=== PATIENT | female | born 1955 | race Caucasian/White ===

== ENCOUNTER 2017-10-04 22:20 | Emergency (ER) | payer OTHER ==
[~2017-10-04] VITALS: Ht 172.7 cm; Wt 81.7 kg
[~2017-10-04 22:20] MED LIST: ATEN25 PO; CLAR250; HYDACE5 PO; IODINE; THYR60
[2017-10-05] MEDS ORDERED: EPIPEN 2-P0.3 MG/0.3 IM (01:15)
[2017-10-05] MEDS ORDERED: BENADRYL25 MG PO (01:15)
[2017-10-05] MEDS ORDERED: Prednisone50 MG PO (01:15)
[2017-10-05] MEDS ORDERED: FAMO20 PO (01:15)
== END 2017-10-05 01:35 | disposition home or self-care (01) ==
LOC: ER 22:20
DX: T63.441A Toxic effect of venom of bees, accidental (unintentional), initial encounter (principal); Z79.899 Other long term (current) drug therapy
CPT/HCPCS: 99283; J1100

== ENCOUNTER 2018-08-07 21:31 | Emergency (ER) | payer OTHER ==
[~2018-08-07] VITALS: Ht 172.7 cm; Wt 74.8 kg
[~2018-08-07 21:31] MED LIST changes: +BENADRYL25 MG PO; +EPIPEN 2-P0.3 MG/0.3 IM; +FAMO20 PO; +Prednisone50 MG PO
[2018-08-07] MEDS ORDERED: LEVSOD50 PO (22:33)
== END 2018-08-07 23:34 | disposition home or self-care (01) ==
LOC: ER 21:31
DX: L50.9 Urticaria, unspecified (principal); Z79.52 Long term (current) use of systemic steroids; Z91.030 Bee allergy status
CPT/HCPCS: 99283; J1100; Q0163

== ENCOUNTER 2018-08-12 20:40 | Emergency (ER) | payer OTHER ==
[~2018-08-12] VITALS: Ht 172.7 cm; Wt 72.6 kg
[~2018-08-12 20:40] MED LIST changes: +LEVSOD50 PO
== END 2018-08-12 22:15 | disposition home or self-care (01) ==
LOC: ER 20:40
DX: S61.412A Laceration without foreign body of left hand, initial encounter (principal); E03.9 Hypothyroidism, unspecified; Z79.899 Other long term (current) drug therapy; Z87.891 Personal history of nicotine dependence; W45.8XXA Other foreign body or object entering through skin, initial encounter
CPT/HCPCS: 12002; 90471; 90714; 99282-25; A9270-GY

== ENCOUNTER 2019-04-21 10:52 | Day surgery (SDC) | payer OTHER ==
[~2019-04-21] VITALS: Wt 71.3 kg
--- NOTE | 2019-04-21 12:28 | NUR ---
Ambulatory in Day SurgeryPatient states colon prep results clear. History, Chart, Medications and Allergies reviewed before start of procedure.Lungs clear T/O to Auscultation. Patient confirms NPO status and agrees with scheduled surgery.
--- NOTE | 2019-04-21 12:39 | NUR ---
04/21/19 1239 Theresa Hernadez History, Chart, Medications and Allergies reviewed before start of procedure. PATIENT CONFIRMS NPO STATUS AND AGREES WITH SCHEDULED PROCEDURE. MONITOR INTACT WITH CONTINUOUS PULSE OXIMETRY AND INTERMITTENT BP. O2 VIA N/C INTACT THROUGHOUT SEDATION/PROCEDURE. 3-LEAD EKG REVIEWED WITH PHYSICIAN PRIOR TO START OF PROCEDURE. PATIENT DETERMINED TO BE ASA APPROPRIATE FOR PROPOFOL SEDATION PRIOR TO START OF PROCEDURE BY DR. [email or web address].N
--- NOTE | 2019-04-21 13:53 | NUR ---
REPORT FROM MIAH PERERA RN.
--- NOTE | 2019-04-21 14:21 | NUR ---
Patient up to Ambulate independently. Gait steady. Discharge instructions reviewed with patient. Patient verbalizes understanding. Copy given to patient to take home. Patient States Post-Procedure ride home has been arranged. Discharged via wheelchair to private car for ride home.
== END 2019-04-21 22:45 | disposition home or self-care (01) ==
LOC: ORSCMMR 10:52 → ORD 12:30 → ORSCMMR 22:45
PROVIDERS: Internal Medicine Gastroenterology
PROC: 0DBK8ZX Excision of Ascending Colon, Via Natural or Artificial Opening Endoscopic, Diagnostic (ICD-10-PCS; principal; 2019-04-21 12:30)
PROC: 0DBM8ZX Excision of Descending Colon, Via Natural or Artificial Opening Endoscopic, Diagnostic (ICD-10-PCS; principal; 2019-04-21 12:30)
DX: R19.5 Other fecal abnormalities (principal); D12.2 Benign neoplasm of ascending colon; D12.4 Benign neoplasm of descending colon; K63.5 Polyp of colon; K57.30 Diverticulosis of large intestine without perforation or abscess without bleeding; K64.8 Other hemorrhoids; Q27.33 Arteriovenous malformation of digestive system vessel; F17.210 Nicotine dependence, cigarettes, uncomplicated; E03.9 Hypothyroidism, unspecified; Z79.899 Other long term (current) drug therapy
CPT/HCPCS: 88305; J2250; J2704; J7120

== ENCOUNTER → 2021-11-28 | Outpatient (CLI) | payer OTHER ==
[~2021-11-28] MED LIST changes: +HYDCHL25 PO; +MOTION RELIEF25 MG PO; +ONDA4ODT SL
[2021-11-29 15:10] LABS: HPV 16 Negative (Negative); HPV 18 Negative (Negative); HPV OTHER HR TYPES Negative (Negative)
== END | disposition home or self-care (01) ==
LOC: LAB SHORT 14:37 → LAB 14:37
PROVIDERS: Family Medicine
DX: Z12.4 Encounter for screening for malignant neoplasm of cervix (principal)
CPT/HCPCS: 87624; G0123

== ENCOUNTER 2022-07-22 06:45 | Day surgery (SDC) | payer OTHER ==
[~2022-07-22] VITALS: Ht 172.7 cm; Wt 75.1 kg
[2022-07-22] MEDS ORDERED: LOSA25 (07:12)
[2022-07-22] MEDS ORDERED: OMEP20ER (07:12)
[2022-07-22] MEDS ORDERED: EUTHYROX50 MCG (07:12)
== END 2022-07-22 09:17 | disposition home or self-care (01) ==
LOC: ORSCSDS 06:45
PROVIDERS: Internal Medicine Gastroenterology
PROC: 0DBL8ZX Excision of Transverse Colon, Via Natural or Artificial Opening Endoscopic, Diagnostic (ICD-10-PCS; principal; 2022-07-22 08:15)
DX: Z12.11 Encounter for screening for malignant neoplasm of colon (principal); Z86.010 Personal history of colon polyps; Z83.71 Family history of colonic polyps; D12.3 Benign neoplasm of transverse colon; K57.30 Diverticulosis of large intestine without perforation or abscess without bleeding; K21.9 Gastro-esophageal reflux disease without esophagitis; K55.20 Angiodysplasia of colon without hemorrhage; Z87.891 Personal history of nicotine dependence; Z79.899 Other long term (current) drug therapy
CPT/HCPCS: 88305; J2704; J7120

== ENCOUNTER → 2022-08-19 | Outpatient (CLI) | payer OTHER ==
[~2022-08-19] MED LIST changes: +EUTHYROX50 MCG; +LOSA25; +OMEP20ER
[2022-08-19 20:12] LABS: Bun/Creatinine Ratio 20.3 (12.0-20.0); Calcium, Blood 8.9 mg/dL (8.5-10.1); Creatinine, Blood 0.59 mg/dL (0.40-1.00); Potassium, Blood 3.8 mmol/L (3.5-5.5)
[2022-08-19 20:16] LABS: BASOPHILS ABSOLUTE AUTO 0.02 K/mm3 (0.00-0.23); BASOPHILS PERCENT AUTO 0 % (0-2); EOSINOPHILS ABSOLUTE AUTO 0.09 K/mm3 (0.00-0.68); EOSINOPHILS PERCENT AUTO 2 % (0-6); IMMATURE GRAN ABSOLUTE AUTO 0.01 K/mm3 (0.00-0.10); IMMATURE GRAN PERCENT AUTO 0 % (0-1); LYMPHOCYTES ABSOLUTE AUTO 1.46 K/mm3 (0.84-5.20); LYMPHOCYTES PERCENT AUTO 26 % (21-46); MONOCYTES ABSOLUTE AUTO 0.37 K/mm3 (0.16-1.47); MONOCYTES PERCENT AUTO 7 % (4-13); Mean Corpuscular HGB 30.1 pg (26.0-34.0); Mean Corpuscular HGB Conc 33.3 g/dL (31.5-36.5); Mean Corpuscular Volume 90 fL (80-100); Mean Platelet Volume 10.5 fL (9.1-12.4); NEUTROPHILS ABSOLUTE AUTO 3.65 K/mm3 (1.96-9.15); NEUTROPHILS PERCENT AUTO 65 % (41-73); Platelet Count 300 K/mm3 (150-400); RDW Coefficient Variation 12.2 % (11.7-14.2); RDW Standard Deviation 40.7 fL (35.1-46.3); Red Blood Cell Count 4.32 M/mm3 (3.80-5.20)
== END | disposition home or self-care (01) ==
LOC: LAB 15:35 → LAB SHORT 15:35
PROVIDERS: Student in an Organized Health Care Education/Training Program
DX: I10 Essential (primary) hypertension (principal); R35.0 Frequency of micturition
CPT/HCPCS: 80048; 85025

== ENCOUNTER → 2022-08-22 | Outpatient (CLI) | payer OTHER ==
[2022-08-22 14:58] LABS: Free Thyroxine 1.04 ng/dL (0.70-1.60); Thyroid Stimulating Hormone 1.91 uIU/mL (0.360-4.800)
== END | disposition home or self-care (01) ==
LOC: LAB SHORT 11:34 → LAB 11:34
PROVIDERS: Family Medicine
DX: E03.8 Other specified hypothyroidism (principal)
CPT/HCPCS: 84439; 84443

== ENCOUNTER → 2022-10-28 | Outpatient (CLI) | payer OTHER ==
[2022-10-28 20:12] LABS: Bun/Creatinine Ratio 22.6 (12.0-20.0); Calcium, Blood 9.6 mg/dL (8.5-10.1); Creatinine, Blood 0.57 mg/dL (0.40-1.00); Potassium, Blood 4.2 mmol/L (3.5-5.5)
== END ==
LOC: LAB SHORT 15:49 → LAB 15:49
PROVIDERS: Student in an Organized Health Care Education/Training Program
DX: R89.9 Unspecified abnormal finding in specimens from other organs, systems and tissues (principal)
CPT/HCPCS: 80048

== ENCOUNTER 2022-12-16 09:58 | Day surgery (SDC) | payer OTHER ==
[~2022-12-16] VITALS: Ht 172.7 cm; Wt 74.0 kg
[2022-12-16] MEDS ORDERED: EUTHYROX50 MC1 (11:06)
[2022-12-16] MEDS ORDERED: EUTHYROX75 MC1 PO (11:06)
[2022-12-16 14:29] VITALS: BP 107/66
== END 2022-12-16 14:00 | disposition home or self-care (01) ==
LOC: ORSCSDS 09:58
PROVIDERS: Internal Medicine Gastroenterology
PROC: 0DJ08ZZ Inspection of Upper Intestinal Tract, Via Natural or Artificial Opening Endoscopic (ICD-10-PCS; principal; 2022-12-16 11:30)
DX: K21.9 Gastro-esophageal reflux disease without esophagitis (principal); K44.9 Diaphragmatic hernia without obstruction or gangrene; F41.9 Anxiety disorder, unspecified; E03.9 Hypothyroidism, unspecified; Z79.899 Other long term (current) drug therapy
CPT/HCPCS: J2704; J7120

== ENCOUNTER → 2023-10-16 | Outpatient (CLI) | payer OTHER ==
[~2023-10-16] MED LIST changes: +EUTHYROX50 MC1; +EUTHYROX75 MC1 PO
== END ==
LOC: LAB 16:47 → LAB SHORT 16:47
DX: E03.8 Other specified hypothyroidism (principal)
CPT/HCPCS: 84443

== ENCOUNTER 2024-01-06 18:47 | Emergency (ER) | payer OTHER ==
[~2024-01-06] VITALS: Ht 172.7 cm; Wt 81.7 kg
[2024-01-06 19:22] VITALS: BP 179/88
== END 2024-01-06 19:30 | disposition home or self-care (01) ==
LOC: ER 18:47
DX: T63.441A Toxic effect of venom of bees, accidental (unintentional), initial encounter (principal); Z87.891 Personal history of nicotine dependence; E03.9 Hypothyroidism, unspecified; Z79.899 Other long term (current) drug therapy; Z91.030 Bee allergy status
CPT/HCPCS: 99282